=== PATIENT | male | born 1965 | race Caucasian/White ===

== ENCOUNTER → 2016-11-24 | Day surgery (SDC) | payer BC | END | disposition home or self-care (01) | LOC: SDCH 11-10 08:00 | DX: Z12.11 Encounter for screening for malignant neoplasm of colon (principal); I10 Essential (primary) hypertension; M19.90 Unspecified osteoarthritis, unspecified site; Z79.899 Other long term (current) drug therapy; Z80.0 Family history of malignant neoplasm of digestive organs | CPT/HCPCS: 84153; J2704 ==